=== PATIENT | male | born 1995 | race Caucasian/White ===

== ENCOUNTER 2017-09-04 04:55 | Emergency (ER) | payer OTHER ==
[2017-09-04 05:24] VITALS: BP 136/80; PULSE 66; RESP 18; TEMP 98.1; O2SAT 96
[2017-09-04 05:29] VITALS: BP 136/80; PULSE 66; RESP 18; TEMP 98.1; O2SAT 96
--- NOTE | 2017-09-04 09:04 | PD ---
HPI Chief Complaint: Psychiatric Symptoms Time Seen by Provider: 09:02 Travel History International Travel<30 days: No Contact w/Intl Traveler<30days: No Traveled to known affect area: No History of Present Illness HPI Patient is a 22-year-old male presenting to the emergency department as a transfer for psychiatric evaluation from [facility] in [place]. Patient reported suicidal ideations and depression to the ED physician there. He was placed under Meyer act secondary to making statements regarding cutting himself. PFSH Past Medical History Anxiety: No Depression: Yes Diabetes: No Diminished Hearing: No Hypertension: No Migraines: No Shingles: No Past Surgical History Surgical History: No Previous Surgery Social History Alcohol Use: Yes Tobacco Use: No Substance Use: Yes Allergies-Medications (Allergen,Severity, Reaction): Coded Allergies: peach (Verified Allergy, Unknown, 09/04/17) Reported Meds & Prescriptions Reported Meds & Active Scripts Active No Active Prescriptions or Reported Medications Review of Systems Except as stated in HPI: all other systems reviewed are Neg Psychiatric: Positive: Depression, Suicidal Ideations Physical Exam Narrative GENERAL: Well-developed, well-nourished, alert male. Presenting in no acute distress. SKIN: Warm and dry. HEAD: Atraumatic. Normocephalic. EYES: Pupils equal and round. No scleral icterus. No injection or drainage. ENT: No nasal bleeding or discharge. Mucous membranes pink and moist. NECK: Trachea midline. No JVD. CARDIOVASCULAR: Regular rate and rhythm. RESPIRATORY: No accessory muscle use. Clear to auscultation. Breath sounds equal bilaterally. GASTROINTESTINAL: Abdomen soft, non-tender, nondistended. Hepatic and splenic margins not palpable. MUSCULOSKELETAL: Extremities without clubbing, cyanosis, or edema. No obvious deformities. NEUROLOGICAL: Awake and alert. No obvious cranial nerve deficits. Motor grossly within normal limits. Five out of 5 muscle strength in the arms and legs. Normal speech. PSYCHIATRIC: Depressed mood and affect; insight and judgment normal. Data Data Last Documented VS Vital Signs Date Time Temp Pulse Resp B/P (MAP) Pulse Ox O2 Delivery O2 Flow Rate FiO2 09/04/17 14:45 09/04/17 10:59 67 18 97 Room Air 09/04/17 05:29 98.1 Orders Orders Psych Screen (09/04/17 05:49) Diet Regular Basic (09/04/17 Breakfast) Diet Regular Basic (09/04/17 Lunch) Ed Discharge Order (09/04/17 12:16) MDM Medical Decision Making Medical Screen Exam Complete: Yes Emergency Medical Condition: Yes Medical Record Reviewed: Yes Interpretation(s) Vital Signs Date Time Temp Pulse Resp B/P (MAP) Pulse Ox O2 Delivery O2 Flow Rate FiO2 09/04/17 05:29 98.1 66 18 136/80 (98) 96 Room Air 09/04/17 05:24 98.1 66 18 136/80 (98) 96 Differential Diagnosis Psychosis versus mood disorder versus depression versus suicidal ideations versus other Narrative Course Patient is well-appearing 22-year-old male presenting from [facility] in [place] as a transfer for psychiatric evaluation under Meyer act. Medical records reviewed. Patient's vital signs are stable. Patient is medically cleared for psychiatric evaluation. Diagnosis Primary Impression: Medical clearance for psychiatric admission Scripts No Active Prescriptions or Reported Meds Condition: Stable Arminda Dover September 04, 2017 09:04
[2017-09-04 10:59] VITALS: BP 129/58; PULSE 67; RESP 18; O2SAT 97
--- NOTE | 2017-09-04 12:17 | PD ---
Data Data Last Documented VS Vital Signs Date Time Temp Pulse Resp B/P (MAP) Pulse Ox O2 Delivery O2 Flow Rate FiO2 09/04/17 10:59 67 18 129/58 (81) 97 Room Air 09/04/17 05:29 98.1 Orders Orders Psych Screen (09/04/17 05:49) Diet Regular Basic (09/04/17 Breakfast) Diet Regular Basic (09/04/17 Lunch) Ed Discharge Order (09/04/17 12:16) MDM Medical Record Reviewed: Yes Supervised Visit with JOEL: No Narrative Course Please see previous providers notes. The Meyer act has been lifted by psychiatry and the patient has been cleared by psychiatry. He has no medical issues that would warrant further hospitalization. He is stable for discharge. Diagnosis Primary Impression: Medical clearance for psychiatric admission Med/Other Pt SpecificInfo: No Change to Meds Scripts No Active Prescriptions or Reported Meds Disposition: 01 DISCHARGE HOME Condition: Stable Prakash Baldwin September 04, 2017 12:17
--- NOTE | 2017-09-04 12:20 | PD ---
History of Present Illness Chief Complaint: Psychiatric Symptoms Time Seen by Provider: 11:15 Travel History International Travel<30 Days: No Contact w/Intl Traveler<30days: No Known affected area: No Legal Status Legal Status: Meyer Act Meyer Act Signed By: [facility] Office Officer Duarte #[id number] History of Present Illness: Patient is a 22 y/o caucausian male who lives in [place] and transferred from [facility] in [place], [place]. Patient was transferred under a Meyer Act from the [facility]. The Meyer Act states, " Subject is having suicidal thoughts, subject cut himself four times with a knife to cause harm , was previously on medications for depression." Patient states that he was in an argument with his girlfriend for about an hour. The girlfriend left and the police came and placed him under a Meyer Act. He states that he is upset because the girlfriend wants to leave him , but he loves he and does not want her to leave. Patient presents with four superfical cuts to his left wrist. Chart reviewed and discussed patient with SHAYAN Allred. Patient is in room J - 103 in a hospital gown. Patient is obese, looks his stated age, is unkept and disheveled. He speaks in a low tone at a consistent rate. He is childlike in presentation. His gait is normal and steady. He has a poor self image. His mood is depressed and affect is flat. He has a good fund of knowledge. He is easily distracted and with unfocused attention. His judgement is good and he is able to articulate his feelings. Collateral : Patient's parents live in [place] but patient did not want me to call them . He did give me permission to call his girlfriend. I called his girlfriend , Vernell Hernandez [phone]. She states that they have been fighting and yesterday the argument proceeded for approximately one hour. She states that she told him that she "wants to take a break from their relationship." They were arguing in the car and she left, but she realized that she left her wallet in the car. She returned to the car for her wallet and he had four cut garland on his left wrist and he was bleeding so she was upset and someone called the police to get him care. She states that he is under care for his depression which has been ongoing, but he is not taking his medications. vernell stated that she thinks it was just a fight and that they will work things out. She does not feel that he has suicidal tendencies, but wanted to do something to get her attention. She is willing to pick him up. Dx: Depression; Suicidal Ideation PFSH Past Medical History Narrative Medical Treated in past for depression, cannot recall the name of the medications he has been on . Anxiety: No Depression: Yes Diabetes: No Diminished Hearing: No Hypertension: No Migraines: No Shingles: No Past Surgical History Surgical History: No Previous Surgery Psychiatric History Psychiatric History Hx Psychiatric Treatment: Pt states he was seeing a therapist when he lived in [place] but not since he has been here in [place]. History of Inpatient Treatment: No Social History Hx Alcohol Use: Yes Hx Tobacco Use: No Hx Substance Use: Yes Substance Use Type: Marijuana Hx of Substance Use Treatment: No Allergies-Medications (Allergen,Severity, Reaction): Coded Allergies: peach (Verified Allergy, Unknown, 09/04/17) Reported Meds & Prescriptions Reported Meds & Active Scripts Active No Active Prescriptions or Reported Medications Mental Status Examination Appearance: Disheveled Consciousness: Alert Orientation: x4 Motor Activity: Normal gait Speech: Other (low in tone) Language: Adequate Fund of Knowledge: Adequate Attention and Concentration: Easily Distracted Memory: Unremarkable Mood: Sad Affect: Sad, Flat, Blunt Thought Process & Associations: Intact Thought Content: Appropriate Hallucination Type: None Delusion Type: None Suicidal Ideation: No Suicidal Plan: No Suicidal Intention: No Homicidal Ideation: No Homicidal Plan: No Homicidal Intention: No Insight: Adequate Judgment: Adequate MDM Medical Decision Making Medical Record Reviewed: Yes Assessment/Plan Patient is a 22 y/o male transferred from [facility] in [place]. He is under a Meyer Act for suicidal thoughts. Patient and girlfriend endorse that they were in a fight yesterday over their relationship. Patient cut his wrist superficially and is sad due to the pending "break up." Patient has been treated for depression in the past. He currently is not on any medications. Patient endorses no suicidal ideations. He is cooperative and apologizes for the trouble he has caused. Based on patient's presentation and information from the girlfriend, I will lift the Meyer Act. Patient will be given information on a resource in [place] to follow up and seek treatment for his depression. [facility] , [address] [place] [address]. [phone]. Patient is at low risk for self harm. Will release patient. His girlfriend will be coming to pick him up. Orders Orders Psych Screen (09/04/17 05:49) Diet Regular Basic (09/04/17 Breakfast) Diet Regular Basic (09/04/17 Lunch) Results Vital Signs Date Time Temp Pulse Resp B/P (MAP) Pulse Ox O2 Delivery O2 Flow Rate FiO2 09/04/17 10:59 67 18 129/58 (81) 97 Room Air 09/04/17 05:29 98.1 66 18 136/80 (98) 96 Room Air 09/04/17 05:24 98.1 66 18 136/80 (98) 96 Diagnosis Primary Impression: Depression Additional Impression: Suicidal ideation Additional Instructions: Follow up for depression: [address] [phone] Prescriptions No Active Prescriptions or Reported Meds Disposition: 01 DISCHARGE HOME Condition: Stable Problem Qualifiers Evelyn Galindo September 04, 2017 12:20
== END 2017-09-04 15:11 | disposition home or self-care (01) ==
LOC: NEPJ 04:55
DX: F32.9 Major depressive disorder, single episode, unspecified (principal)
CPT/HCPCS: 99283